=== PATIENT | female | born 1985 | race Two or more races ===

== ENCOUNTER 2019-09-22 14:29 | Emergency (ER) | payer OTHER, MEDICAID ==
[~2019-09-22] VITALS: Ht 154.9 cm; Wt 62.1 kg
[2019-09-22 16:45] VITALS: BP 136/88
[2019-09-22] MEDS ORDERED: HYDROcodone-ACET 5/325MG TAB PO ONE (17:00)
== END 2019-09-22 17:03 | disposition home or self-care (01) ==
LOC: ER 14:29
DX: M62.830 Muscle spasm of back (principal); M54.2 Cervicalgia; Z90.49 Acquired absence of other specified parts of digestive tract; Z98.51 Tubal ligation status; V43.52XA Car driver injured in collision with other type car in traffic accident, initial encounter; Y93.89 Activity, other specified; Y92.89 Other specified places as the place of occurrence of the external cause; Y99.8 Other external cause status
CPT/HCPCS: 71101; 72040